=== PATIENT | female | born 1945 | race Caucasian/White ===

== ENCOUNTER → 2017-11-15 | Outpatient (CLI) | payer MEDICARE ==
[~2017-11-15] MED LIST: CHRO200 PO; MULT50L PO
== END ==
LOC: LAB 16:12 → LAB SHORT 16:12
DX: L08.9 Local infection of the skin and subcutaneous tissue, unspecified (principal); D48.5 Neoplasm of uncertain behavior of skin
CPT/HCPCS: 87070; 87205

== ENCOUNTER → 2021-02-12 | Outpatient (CLI) | payer MEDICARE ==
[2021-02-13 08:44] LABS: Stool Occult Bld Immuno 1 Negative (NEGATIVE)
== END | disposition home or self-care (01) ==
LOC: LAB 13:22 → LAB SHORT 13:22
PROVIDERS: Family Medicine
DX: Z12.11 Encounter for screening for malignant neoplasm of colon (principal)
CPT/HCPCS: 82274

== ENCOUNTER 2023-06-30 06:27 | Inpatient (IN) | payer OTHER ==
[~2023-06-30] VITALS: Ht 165.1 cm; Wt 68.0 kg
[2023-06-30 07:05] LABS: BASOPHILS ABSOLUTE AUTO 0.03 K/mm3 (0.00-0.23); BASOPHILS PERCENT AUTO 0 % (0-2); EOSINOPHILS ABSOLUTE AUTO 0.01 K/mm3 (0.00-0.68); EOSINOPHILS PERCENT AUTO 0 % (0-6); Hematocrit 43.7 % (33.0-51.0); Hemoglobin 14.5 g/dL (11.5-16.0); IMMATURE GRAN ABSOLUTE AUTO 0.04 K/mm3 (0.00-0.10); IMMATURE GRAN PERCENT AUTO 0 % (0-1); LYMPHOCYTES ABSOLUTE AUTO 1.78 K/mm3 (0.84-5.20); LYMPHOCYTES PERCENT AUTO 15 % (21-46); MONOCYTES ABSOLUTE AUTO 1.06 K/mm3 (0.16-1.47); MONOCYTES PERCENT AUTO 9 % (4-13); Mean Corpuscular HGB 30.5 pg (26.0-34.0); Mean Corpuscular HGB Conc 33.2 g/dL (31.5-36.5); Mean Corpuscular Volume 92 fL (80-100); Mean Platelet Volume 11.2 fL (9.1-12.4); NEUTROPHILS ABSOLUTE AUTO 8.99 K/mm3 (1.96-9.15); NEUTROPHILS PERCENT AUTO 76 % (41-73); Platelet Count 213 K/mm3 (150-400); RDW Coefficient Variation 12.7 % (11.7-14.2); RDW Standard Deviation 43.3 fL (35.1-46.3); Red Blood Cell Count 4.75 M/mm3 (3.80-5.20); White Blood Cell Count 11.91 K/mm3 (4.00-11.30)
[2023-06-30 07:27] LABS: Albumin, Blood 3.7 g/dL (3.4-5.0); Bilirubin, Direct 0.2 mg/dL (0.0-0.3); Bilirubin, Indirect 1.1 mg/dL (0.1-0.7); Bilirubin, Total 1.3 mg/dL (0.1-1.0); Bun/Creatinine Ratio 17.1 (12.0-20.0); Calcium, Blood 9.8 mg/dL (8.5-10.1); Creatinine, Blood 0.7 mg/dL (0.40-1.00); Globulin, Blood 3.6 g/dL (2.2-4.0); Magnesium, Blood 2.3 mg/dL (1.6-2.4); Potassium, Blood 3.4 mmol/L (3.5-5.5); Total Protein, Blood 7.3 g/dL (6.4-8.2)
[2023-06-30 07:37] LABS: Source, Urine Straight Cath
[2023-06-30 07:44] LABS: Appearance, Urine Hazy (Clear); Bilirubin, Urine Neg (Neg); Blood, Urine 4+ (Neg); Color, Urine Yellow (P-Yellow); Glucose Qualitative, Urine Neg (Neg); Ketones, Urine 4+ (Neg); Leukocyte Esterase, Urine Neg (Neg); Nitrite, Urine Neg (Neg); Protein, Urine 3+ (Neg); Urobilinogen, Urine NORM (Normal)
[2023-06-30 07:58] LABS: Bacteria Rare /hpf; Squamous Epithelial Cells Few /hpf (Few)
[2023-06-30 07:59] LABS: Granular Casts 0-2 /lpf (0); Mucus Mod (0-Heavy)
[2023-06-30 14:44] VITALS: BP 143/65
[2023-06-30 15:40] VITALS: BP 134/67
--- NOTE | 2023-06-30 18:14 | NUR ---
PT ARRIVED IN THE UNIT AT 1430 VIA BED PT TRANSFERRED VIA SLIDE SHEET. PT IS HERE FOR NEW ONSET ON CVA LEFT SIDE WEAKNESS. PT ALERT AND ORIENTED X4 NO PROBLEMS WITH SPEECH, NO FACIAL DROOP/DYSPHAGIA. VITALS HRR SR 90'S, SATS ABOVE 95% ON RA, SBP 130'S, AFEBRILE. PT GOT SPEECH EVAL DONE, NO SPECIALTY DIET, PT SWALLOWS WITH NO ISSUES, THIN LIQUIDS. PT ALSO ABLE TO WORK WIHT PHYSICAL THERAPIST AFTER 2PA PER VIA WALKER AND GAIT BELT PER RECOMMENDATION, ALSO RECOMMENDING SNF FOR REHAB. PT C/O HEAD ACHE UPON ARRIVAL TYLENOL GIVEN WITH RELIEF. D51/2NS WITH 20MEQ POTASSIUM RUNNING AT 75MLS/HR. PT DENIES CHEST PAIN/PRESSURE. TROPONIN TRENDING DOWN, ECHO WAS DONE TODYA WELL, EKG ORDERED IN AM, NO OTHER ISSUES REPORTED, PT HAS BEEN CALLING APPROPRIATELY, CURRENTLY EATING DINNER. CALL LIGHTS IN REACH WILL RPEORT TO ONCOMING SHIFT
[2023-06-30 20:10] VITALS: BP 111/72
[2023-07-01 03:42] LABS: BASOPHILS ABSOLUTE AUTO 0.03 K/mm3 (0.00-0.23); BASOPHILS PERCENT AUTO 0 % (0-2); EOSINOPHILS ABSOLUTE AUTO 0.17 K/mm3 (0.00-0.68); EOSINOPHILS PERCENT AUTO 2 % (0-6); Hematocrit 40.6 % (33.0-51.0); Hemoglobin 13.4 g/dL (11.5-16.0); IMMATURE GRAN ABSOLUTE AUTO 0.02 K/mm3 (0.00-0.10); IMMATURE GRAN PERCENT AUTO 0 % (0-1); LYMPHOCYTES ABSOLUTE AUTO 2.45 K/mm3 (0.84-5.20); LYMPHOCYTES PERCENT AUTO 28 % (21-46); MONOCYTES ABSOLUTE AUTO 0.73 K/mm3 (0.16-1.47); MONOCYTES PERCENT AUTO 8 % (4-13); Mean Corpuscular HGB 30.5 pg (26.0-34.0); Mean Corpuscular Volume 93 fL (80-100); Mean Platelet Volume 10.4 fL (9.1-12.4); NEUTROPHILS ABSOLUTE AUTO 5.29 K/mm3 (1.96-9.15); NEUTROPHILS PERCENT AUTO 61 % (41-73); Platelet Count 169 K/mm3 (150-400); RDW Coefficient Variation 12.8 % (11.7-14.2); RDW Standard Deviation 43.6 fL (35.1-46.3); Red Blood Cell Count 4.39 M/mm3 (3.80-5.20); White Blood Cell Count 8.69 K/mm3 (4.00-11.30)
[2023-07-01 04:04] LABS: Albumin, Blood 3.2 g/dL (3.4-5.0); Albumin/Globulin Ratio 0.9 (0.8-1.8); Bilirubin, Total 0.8 mg/dL (0.1-1.0); Bun/Creatinine Ratio 17.4 (12.0-20.0); Calcium, Blood 9.4 mg/dL (8.5-10.1); Creatinine, Blood 0.63 mg/dL (0.40-1.00); Globulin, Blood 3.4 g/dL (2.2-4.0); Potassium, Blood 3.9 mmol/L (3.5-5.5); Total Protein, Blood 6.6 g/dL (6.4-8.2)
[2023-07-01 04:28] VITALS: BP 118/69
[2023-07-01 07:30] VITALS: BP 118/79
--- NOTE | 2023-07-01 08:41 | NUR ---
PER DR CAMPO. PATIENT CAN HAVE COFFEE WITH HER DIET.
[2023-07-01 10:41] VITALS: BP 118/69
[2023-07-01 15:40] VITALS: BP 116/63
--- NOTE | 2023-07-01 16:43 | NUR ---
SHIFT SUMMARY PATIENT IS ALERT AND ORIENTED WITH OCCASIONAL CONFUSION. PATIENT HAS HAD NO ACUTE EVENTS THIS SHIFT. PATIENT WORKED WELL WITH OT AND PT THIS SHIFT. PATIENT IS A POTENTIAL DISCHARGE TO SNF TOMORROW. PATIENT HAS NOT COMPLAINED OF PAIN, SOB, VOMITTING OR NAUSEA THIS SHIFT. PATIENT IS ADMITTED FOR CVA WITH LEFT SIDED WEAKNESS, PATIENTS STRENGTH IS IMPROVING ON HER WEAK SIDE. PATIENT IS A HEAVY 2 PERSON ASSIST TO BSC. BED ALARM IS ON. BED IN LOCKED AND LOWEST POSITION. CALL LIGHT IN PLACE. WILL MONITOR UNTIL SHIFT CHANGE.
[2023-07-01 18:07] VITALS: BP 135/75
[2023-07-01 19:24] VITALS: BP 115/74
[2023-07-02 05:45] VITALS: BP 139/57
[2023-07-02 09:00] VITALS: BP 132/80
[2023-07-02] MEDS ORDERED: ASPI325 PO (11:17)
[2023-07-02] MEDS ORDERED: Acetaminophen650 M1 PO (11:17)
[2023-07-02] MEDS ORDERED: MULVITA PO (11:17)
[2023-07-02] MEDS ORDERED: BISA10S PR (11:18)
[2023-07-02] MEDS ORDERED: ATOR20 PO (11:18)
[2023-07-02] MEDS ORDERED: FAMO20 PO (11:19)
[2023-07-02] MEDS ORDERED: SENN187 PO (11:19)
[2023-07-02] MEDS ORDERED: DICLOFENAC SOD100 GM TOP (11:31)
[2023-07-02 12:00] LABS: SARS-Cov-2 (COVID-19) PCR, MMC NEGATIVE (NEGATIVE)
[2023-07-02 15:03] VITALS: BP 150/84
--- NOTE | 2023-07-02 15:04 | NUR ---
JUST WORKED WITH PHYSICAL THERAPY
[2023-07-02 18:32] VITALS: BP 144/69
--- NOTE | 2023-07-02 18:39 | NUR ---
SHIFT SUMMARY PT A&OX3/OCC FORGETFUL, VSS/RA/TELE NSR 70s, ROBERTA PO/MEDS 1X/H20, VOIDING, AMB 2 PP MOD ASSIST WITH FWW/GB, WORKED WITH PT/OT, AMB TO BRP/UP TO CHAIR FOR MEALS, LEFT SIDE WEAKNESS. WILL REPORT TO ONCOMING NOC RN.
[2023-07-02 23:56] VITALS: BP 150/82
--- NOTE | 2023-07-03 05:46 | NUR ---
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 PT WAS ABLE TO AMBULATE TO THE BATHROOM SEVERAL TIMES THIS SHIFT WITH A 2 PERSON ASSIST, FWW, AND A GAIT BELT. PT WAS STEADY ON HER FEET, ONLY NEEDING DIRECTION ON OCCASION WITH WALKING. PT'S VITAL SIGNS STABLE WITH NO ACUTE EVENTS OCCURRING OVERNIGHT. BED IS IN LOWEST POSITION, CALL LIGHT IS WITHIN REACH.
[2023-07-03 07:44] VITALS: BP 153/81
[2023-07-03 11:18] LABS: Influenza A, PCR NEGATIVE (NEGATIVE); Influenza B, PCR NEGATIVE (NEGATIVE); Resp Syncytial Virus, PCR NEGATIVE (NEGATIVE); SARS-Cov-2 (COVID-19) PCR, MMC NEGATIVE (NEGATIVE)
[2023-07-03 11:45] VITALS: BP 146/81
--- NOTE | 2023-07-03 14:21 | NUR ---
PATIENT DISCHARGED TO [facility]. ASSISTED WITH DRESSING INTO HER OWN CLOTHING. TELEPHONE REPORT GIVEN TO ALEJANDRA CARRASQUILLO AT FACILITY. OFF UNIT VIA W/C TRANSPORT AT 1411. NO PERSONAL BELONGINGS LEFT BEHIND IN ROOM.
== END 2023-07-03 14:16 | DRG 64 ==
LOC: ER 06:27 → PCU 12:19
PROVIDERS: Student in an Organized Health Care Education/Training Program; ADMIT Family Medicine
DX: I63.81 Other cerebral infarction due to occlusion or stenosis of small artery (principal); I21.4 Non-ST elevation (NSTEMI) myocardial infarction; G81.94 Hemiplegia, unspecified affecting left nondominant side; E87.6 Hypokalemia; T79.6XXA Traumatic ischemia of muscle, initial encounter; K80.20 Calculus of gallbladder without cholecystitis without obstruction; I10 Essential (primary) hypertension; E74.39 Other disorders of intestinal carbohydrate absorption; W06.XXXA Fall from bed, initial encounter; J44.9 Chronic obstructive pulmonary disease, unspecified; M54.9 Dorsalgia, unspecified; R73.03 Prediabetes; E78.2 Mixed hyperlipidemia; M81.0 Age-related osteoporosis without current pathological fracture; Z98.890 Other specified postprocedural states; Z87.891 Personal history of nicotine dependence; Z91.040 Latex allergy status; Z60.2 Problems related to living alone; Z87.19 Personal history of other diseases of the digestive system; Z79.899 Other long term (current) drug therapy
CPT/HCPCS: 0241U; 36415; 70450; 70496; 70498; 71045; 74177; 80048; 80053; 80076; 81001; 82550; 82947; 83690; 83735; 84145; 84484; 85025; 92526; 92610; 93005; 93010; 93306; 97110; 97112; 97116; 97162; 97165; 97530; 97535; 99285-25; A9270; J1650; J1815; Q9967; U0002